=== PATIENT | female | born 1990 | race Caucasian/White ===

== ENCOUNTER 2018-12-07 13:13 | Emergency (ER) | payer BC, OTHER ==
[2018-12-07] MEDS ORDERED: CYCLOBENZAPRINE 10 MG TAB ONE (15:36)
[2018-12-07] MEDS ORDERED: HYDROCODONE/APAP 10/325 TAB ONE (15:37)
[2018-12-07] MEDS ORDERED: IBUPROFEN 400 MG TAB ONE (15:37)
--- NOTE | 2018-12-07 16:01 | RAD REPORT ---
EXAM DESCRIPTION: RAD - Lumbar Spine 3 Views - 12/07/2018 3:55 pm CLINICAL HISTORY: Back pain and bilateral lower extremity radiculopathy COMPARISON: None. FINDINGS: A three-view lumbar spine examination was performed. Lumbar bodies are normal in height and normal in AP alignment. There is a mild right convex scoliotic curvature with the apex at the L2-3 disc level. No fracture or acute bony process seen. No disc spac e narrowing. No pars defects identified. IMPRESSION: Negative lumbar spine examination for acute or significant finding. Minimal right convex scoliotic curvature. Concerns for disc herniation, central canal abnormality or occult bone process can be addressed with MR imaging.
--- NOTE | 2018-12-07 16:06 | EDPHYS ---
Physician Documentation [facility] Name: Julia Rojo Age: 27 yrs Sex: Female : 1990 Arrival Date: 12/07/2018 Time: 13:18 Bed 11 Private MD: None, None ED Physician Keo Duffy HPI: 12/07 15:00 This 27 yrs old Female presents to ER via Ambulatory with complaints of Low pm1 back pain. 15:00 The patient presents with pain. The symptoms are located in the low back area. Onset: pm1 The symptoms/episode began/occurred 3 week(s) ago. The pain radiates to the right leg and left leg. Associated signs and symptoms: Pertinent negatives: abdominal pain, chest pain, constipation, dysuria, fever, headache, incontinence, numbness, tingling, vomiting, weakness. The problem was sustained when bending over. Modifying factors: The patient symptoms are alleviated by remaining still, the patient symptoms are aggravated by bending, coughing, movement. Severity of symptoms: in the emergency department the symptoms are actually worse. The patient has not recently seen a physician, and does not have an established primary care provider. Patient with low back pain for the past 3 weeks. Bilateral low back pain radiates to bilateral legs. Today patient was walking and coughed, exacerbating her low back pain. Patient has not seeked treatment for her back pain for the past three weeks but is starting a new job on Monday, so came to ER for evaluation. 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 - Social history:: Smoking status: Patient/guardian denies using tobacco. - Ebola Screening: : Patient negative for fever greater than or equal to 101.5 degrees Fahrenheit, and additional compatible Ebola Virus Disease symptoms Patient denies exposure to infectious person Patient denies travel to an Ebola-affected area in the 21 days before illness onset No symptoms or risks identified at this time. ROS: 15:00 Constitutional: Negative for fever, chills, and weight loss, Eyes: Negative for injury, pm1 pain, redness, and discharge, ENT: Negative for injury, pain, and discharge, Neck: Negative for injury, pain, and swelling, Cardiovascular: Negative for chest pain, palpitations, and edema, Respiratory: Negative for shortness of breath, cough, wheezing, and pleuritic chest pain, Abdomen/GI: Negative for abdominal pain, nausea, vomiting, diarrhea, and constipation. 15:00 : Negative for injury, bleeding, discharge, and swelling, MS/Extremity: Negative for injury and deformity, Skin: Negative for injury, rash, and discoloration, Neuro: Negative for headache, weakness, numbness, tingling, and seizure. 15:00 Back: Positive for of the low back area. Exam: 15:00 Constitutional: This is a well developed, well nourished patient who is awake, alert, pm1 and in no acute distress. Head/Face: Normocephalic, atraumatic. Eyes: Pupils equal round and reactive to light, extra-ocular motions intact. Lids and lashes normal. Conjunctiva and sclera are non-icteric and not injected. Cornea within normal limits. Periorbital areas with no swelling, redness, or edema. ENT: Nares patent. No nasal discharge, no septal abnormalities noted. Tympanic membranes are normal and external auditory canals are clear. Oropharynx with no redness, swelling, or masses, exudates, or evidence of obstruction, uvula midline. Mucous membranes moist. Neck: Trachea midline, no thyromegaly or masses palpated, and no cervical lymphadenopathy. Supple, full range of motion without nuchal rigidity, or vertebral point tenderness. No Meningismus. Chest/axilla: Normal chest wall appearance and motion. Nontender with no deformity. No lesions are appreciated. Cardiovascular: Regular rate and rhythm with a normal S1 and S2. No gallops, murmurs, or rubs. Normal PMI, no JVD. No pulse deficits. Respiratory: Lungs have equal breath sounds bilaterally, clear to auscultation and percussion. No rales, rhonchi or wheezes noted. No increased work of breathing, no retractions or nasal flaring. Abdomen/GI: Soft, non-tender, with normal bowel sounds. No distension or tympany. No guarding or rebound. No evidence of tenderness throughout. 15:00 Skin: Warm, dry with normal turgor. Normal color with no rashes, no lesions, and no evidence of cellulitis. MS/ Extremity: Pulses equal, no cyanosis. Neurovascular intact. Full, normal range of motion. 15:00 Back: normal spinal alignment noted, muscle spasm, is appreciated in the left low back and right low back, no vertebral tenderness present. Pain on palpation to hips. 15:00 Neuro: Orientation: is normal, Motor: is normal, moves all fours, Sensation: is normal, no obvious gross deficits. Vital Signs: 13:32 BP 119 / 88; Pulse 87; Resp 18; Temp 98.2; Pulse Ox 100% on R/A; Weight 113.4 kg; sg Height 5 ft. 7 in. (170.18 cm); Pain 10/10; 13:32 Body Mass Index 39.16 (113.40 kg, 170.18 cm) sg MDM: 14:23 Patient medically screened. pm1 15:11 Data reviewed: vital signs. Data interpreted: Pulse oximetry: on room air is 100 %. pm1 Interpretation: normal. 16:04 Counseling: I had a detailed discussion with the patient and/or guardian regarding: the pm1 historical points, exam findings, and any diagnostic results supporting the discharge/admit diagnosis, radiology results, the need for outpatient follow up, to return to the emergency department if symptoms worsen or persist or if there are any questions or concerns that arise at home. 12/07 15:32 Order name: Urine Dipstick--Ancillary (enter results) 12/07 15:32 Order name: Urine --Ancillary (enter results) 12/07 14:33 Order name: Lumbar Spine (3 Views) XRAY; Complete Time: 16:04 pm1 12/07 14:33 Order name: Urine Dipstick-Ancillary (obtain specimen); Complete Time: 15:30 pm1 12/07 14:33 Order name: Urine Test (obtain specimen); Complete Time: 15:30 pm1 Administered Medications: 15:30 Drug: [place] 10 mg-325 mg 1 tabs Route: PO; iw 15:30 Drug: Flexeril 10 mg Route: PO; iw 15:30 Drug: Ibuprofen 800 mg Route: PO; iw Disposition: 17:54 Co-signature as Attending Physician, Keo Duffy MD. rn Disposition: 03/29/19 16:05 Discharged to Home. Impression: Lumbago with sciatica. - Condition is Stable. - Discharge Instructions: Back Pain, Adult, Back Injury Prevention. - Prescriptions for Tylenol- Codeine #3 300-30 mg Oral Tablet - take 2 tablets by ORAL route every 6 hours As needed; 20 tablet. Cyclobenzaprine 10 mg Oral Tablet - take 1 tablet by ORAL route every 8 hours As needed; 30 tablet. Diclofenac Sodium 75 mg Oral Tablet Sustained Release - take 1 tablet by ORAL route 2 times per day; 30 tablet. - Work release form, Medication Reconciliation Form, Thank You Letter, Antibiotic Education, Prescription Opioid Use form. - Follow up: Emergency Department; When: As needed; Reason: Worsening of condition. Follow up: Private Physician; When: 2 - 3 days; Reason: Recheck today's complaints, Continuance of care, Re-evaluation by your physician. - Problem is new. - Symptoms have improved. Signatures: Dispatcher [employer] EDMS Mukesh Monzon RN RN sg Williams, Irene, RN RN iw Nieto, Roman, MD MD rn Marinas, Patrick, DARRION BOTTLING MACHINE OPERATOR pm1 Corrections: (The following items were deleted from the chart) 16:19 16:05 12/07/2018 16:05 Discharged to Home. Impression: Lumbago with sciatica. Condition iw is Stable. Forms are Medication Reconciliation Form, Thank You Letter, Antibiotic Education, Prescription Opioid Use. Follow up: Emergency Department; When: As needed; Reason: Worsening of condition. Follow up: Private Physician; When: 2 - 3 days; Reason: Recheck today's complaints, Continuance of care, Re-evaluation by your physician. Problem is new. Symptoms have improved. pm1
--- NOTE | 2018-12-07 16:06 | ER ---
Nurse's Notes [facility] Name: Julia Rojo Age: 27 yrs Sex: Female : 1990 Arrival Date: 12/07/2018 Time: 13:18 Bed 11 Private MD: None, None Diagnosis: Lumbago with sciatica Presentation: 12/07 13:30 Presenting complaint: Patient states: BLE pain, lower back pain, reports was walking sg form the restroom and coughed then had pain in the lower back that radiates down both legs, pt denies any trauma or injury to the body at this time, reports having issues with sciatica in the past. Transition of care: patient was not received from another setting of care. Onset of symptoms was December 07, 2018. Risk Assessment: Do you want to hurt yourself or someone else? Patient reports no desire to harm self or others. Initial Sepsis Screen: Does the patient meet any 2 criteria? No. Patient's initial sepsis screen is negative. Does the patient have a suspected source of infection? No. Patient's initial sepsis screen is negative. Care prior to arrival: None. 13:30 Method Of Arrival: Ambulatory sg 13:30 Acuity: SOFÍA 4 sg Triage Assessment: 15:10 General: Appears in no apparent distress. Behavior is calm. Musculoskeletal: Range of iw motion: intact in all extremities. 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 - Social history:: Smoking status: Patient/guardian denies using tobacco. - Ebola Screening: : Patient negative for fever greater than or equal to 101.5 degrees Fahrenheit, and additional compatible Ebola Virus Disease symptoms Patient denies exposure to infectious person Patient denies travel to an Ebola-affected area in the 21 days before illness onset No symptoms or risks identified at this time. Screenin:18 Abuse screen: Denies threats or abuse. Denies injuries from another. Nutritional iw screening: No deficits noted. Tuberculosis screening: No symptoms or risk factors identified. Fall Risk None identified. Assessment: 15:00 General: Appears in no apparent distress. uncomfortable, Behavior is calm, cooperative. iw Pain: Complains of pain in right low back and left low back and low back area Pain radiates to right leg and left leg Pain. Neuro: Level of Consciousness is awake, alert, obeys commands, Oriented to person, place, time, situation, Moves all extremities. Cardiovascular: Patient's skin is warm and dry. Respiratory: Respiratory effort is even, unlabored. Derm: Skin is intact, is healthy with good turgor. Musculoskeletal: Range of motion: intact in all extremities, Reports pain in low back area. Vital Signs: 13:32 BP 119 / 88; Pulse 87; Resp 18; Temp 98.2; Pulse Ox 100% on R/A; Weight 113.4 kg; sg Height 5 ft. 7 in. (170.18 cm); Pain 10/10; 13:32 Body Mass Index 39.16 (113.40 kg, 170.18 cm) sg ED Course: 13:18 Patient arrived in ED. mr 13:19 None, None is Private Physician. mr 13:31 Triage completed. sg 13:31 Arm band placed on. sg 14:22 Alba Guzman, SHYANNE is Primary Nurse. iw 14:23 Chris Felton NP is PHCP. pm1 14:23 Keo Duffy MD is Attending Physician. pm1 15:00 Patient has correct armband on for positive identification. iw 15:52 Lumbar Spine (3 Views) XRAY In Process Unspecified. EDMS 16:18 No provider procedures requiring assistance completed. Patient did not have IV access iw during this emergency room visit. Administered Medications: 15:30 Drug: [place] 10 mg-325 mg 1 tabs Route: PO; iw 15:30 Drug: Flexeril 10 mg Route: PO; iw 15:30 Drug: Ibuprofen 800 mg Route: PO; iw Outcome: 16:05 Discharge ordered by . pm1 16:18 Discharged to home ambulatory, with friend. iw 16:18 Condition: good 16:18 Discharge instructions given to patient, Instructed on discharge instructions, follow up and referral plans. medication usage, Demonstrated understanding of instructions, follow-up care, medications, Prescriptions given X 3. 16:19 Patient left the ED. iw Signatures: Dispatcher [employer] EDMS Mukesh Monzon RN RN nevin Finney, Chrissy mr Alba Guzman, RN RN iw Purnima, Chris, ASSEMBLY LINE ROBOT OPERATOR ASSEMBLY LINE ROBOT OPERATOR pm1
[2018-12-07 20:10] LABS: Urine Blood NEGATIVE (NEG); Urine Glucose NEGATIVE (NEG); Urine Protein NEGATIVE (NEG); Urine pH 8.5 (5.0-7.0)
== END 2018-12-07 16:19 | disposition home or self-care (01) ==
LOC: ER 13:13
DX: M54.40 Lumbago with sciatica, unspecified side (principal)
CPT/HCPCS: 72100; 81003; 81025; 99283